=== PATIENT | male | born 1980 | race Caucasian/White ===

== ENCOUNTER 2016-12-09 07:15 | Emergency (ER) | payer BC ==
[2016-12-09] MEDS ORDERED: KETOROLAC TROMETHAMINE INJ/PF 30 MG/1 ML SDV IV ONE (08:06)
[2016-12-09] MEDS ORDERED: PROCHLORPERAZINE EDISYLATE INJ 10 MG/2 ML VIAL IV ONE (08:06)
[2016-12-09] MEDS ORDERED: DIPHENHYDRAMINE HCL 50 MG/ML VIAL IV ONE (08:06)
--- NOTE | 2016-12-09 08:40 | RADIOLOGY REPORT (SQ) ---
EXAM DESCRIPTION: CERV SP 4 OR 5 VIEWS COMPLETED DATE/TIME: 12/09/2016 8:29 am REASON FOR STUDY: neck pain, R>L COMPARISON: None. NUMBER OF VIEWS: Five views. TECHNIQUE: AP, lateral, obliques and odontoid radiographic images acquired of the cervical spine. N ondiagnostic swimmer's view LIMITATIONS: On the lateral view, the cervical spine is seen down to the mid C6 vertebral body. Swi mmer's view is nondiagnostic for C6, C7, and T1. However the AP and oblique views show normal alignm ent at these levels. FINDINGS: MINERALIZATION: Normal. ALIGNMENT: Anatomic. VERTEBRAE: Vertebral bodies of normal height. DISCS: No significant osteophytes or sclerosis. Disc height maintained. FORAMINA: No osteophytes or foraminal narrowing. LATERAL AND POSTERIOR ELEMENTS: Facets, lateral masses and spinous processes without significant find ings. HARDWARE: None in the spine. SOFT TISSUES: No masses or calcifications. Lung apices clear. OTHER: No other significant finding. IMPRESSION: Limited negative study. No acute findings. TECHNICAL DOCUMENTATION: JOB ID: [id number]- All Rights Reserved
--- NOTE | 2016-12-09 10:15 | ER Document Report ---
ED General - General Chief Complaint: Headache >24 hrs old Stated Complaint: HEAD AND NECK PAIN Time Seen by Provider: 12/09/16 07:54 TRAVEL OUTSIDE OF THE [place] IN LAST 30 DAYS: No - HPI Notes: Patient is a 35-year-old male with no significant past medical history who presents the ED complaining of neck pain and posterior headache 4 days. Patient states that the headache and the pain is intermittent and is relieved on occasion with ekzm-kjr-summeic medications. 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 Patient states that on occasion he will have some light sensitivity. He denies a migraine history. He is still eating and drinking without any difficulties. He denies any recent illness, surgeries, or injections into his neck or back. Patient denies any IV drug use. Denies any drug allergies. The pain does not radiate and is described as an ache. twisting motions of the head can increase his pain. Denies any fever, head injury, changes in behavior/vision/ speech/mentation/hearing, URI, sore throat, chest pain, palpitations, syncope, cough, shortness of breath, wheeze, dyspnea, abdominal pain, nausea/vomiting/ diarrhea, urinary retention, dysuria, hematuria, loss of control of bowel or bladder, numbness/tingling, saddle anesthesia, muscle paralysis/weakness, or rash. - Related Data Allergies/Adverse Reactions: No Known Allergies Allergy (Unverified 12/09/16 07:20) Past Medical History - Social History Smoking Status: Never Smoker Chew tobacco use (# tins/day): No Frequency of alcohol use: Occasional Drug Abuse: None Family History: Reviewed & Not Pertinent Patient has suicidal ideation: No - Past Medical History Cardiac Medical History: Denies: Hx Hypertension Pulmonary Medical History: Reports: Hx Asthma - as a child Endocrine Medical History: Reports: Hx Diabetes Mellitus Type 2 - "borderline" Renal/ Medical History: Denies: Hx Peritoneal Dialysis - Immunizations Hx Diphtheria, Pertussis, Tetanus Vaccination: Yes Review of Systems - Review of Systems Notes: REVIEW OF SYSTEMS: CONSTITUTIONAL : Denies fever, chills, or sweats. Denies recent illness. EENT: Denies eye, ear, throat, or mouth pain or symptoms. Denies nasal or sinus congestion or discharge. Denies throat, tongue, or mouth swelling or difficulty swallowing. CARDIOVASCULAR: Denies chest pain. Denies palpitations or racing or irregular heart beat. Denies ankle edema. RESPIRATORY: Denies cough, cold, or chest congestion. Denies shortness of breath, difficulty breathing, or wheezing. GASTROINTESTINAL: Denies abdominal pain or distention. Denies nausea, vomiting , or diarrhea. Denies blood in vomitus, stools, or per rectum. Denies black, tarry stools. Denies constipation. GENITOURINARY: Denies difficulty urinating, painful urination, burning, frequency, blood in urine, or discharge. MUSCULOSKELETAL: see hpi. SKIN: Denies rash, lesions or sores. NEUROLOGICAL: see hpi. Denies confusion or altered mental status. Denies passing out or loss of consciousness. Denies dizziness or lightheadedness. Denies weakness or paralysis or loss of use of either side. Denies problems with gait or speech. Denies sensory loss, numbness, or tingling. Denies seizures. PSYCHIATRIC: Denies anxiety or stress. Denies depression, suicidal ideation, or homicidal ideation. ALL OTHER SYSTEMS REVIEWED AND NEGATIVE. Dictation was performed using [employer] voice recognition software Physical Exam - Vital signs Vitals: Temp Pulse Resp BP Pulse Ox 98.4 F 79 18 157/102 H 96 12/09/16 07:21 12/09/16 07:21 12/09/16 07:21 12/09/16 07:21 12/09/16 07:21 Notes: PHYSICAL EXAMINATION: GENERAL: Well-appearing, well-nourished and in no acute distress. A&Ox4 HEAD: Atraumatic, normocephalic. Non-tender. No rasmussen sign EYES: Pupils equal round and reactive to light, extraocular movements intact, sclera anicteric, conjunctiva are normal. No obvious findings noted on funduscopic exam, limited exam w/o dilatation. No raccoon eyes/entrapment ENT: EAC clear b/l. TM's intact b/l without erythema, fluid, or perforation. Nares patent and without discharge. oropharynx clear without exudates. No tonsilar hypertrophy or erythema. Moist mucous membranes. No sinus tenderness. No hemotympanum/CSF discharge. NECK: Normal range of motion, supple without lymphadenopathy. No rigidity. No midline tenderness. Spurling negative. NEXUS negative. + tenderness to the rt C-paraspinal mm and near the occipital nerve bundle. (tenderness elicited is pain described). LUNGS: Breath sounds clear to auscultation bilaterally and equal. No wheezes rales or rhonchi. HEART: Regular rate and rhythm without murmurs, rubs, gallops. Musculoskeletal: Ext b/l: FROM to passive/active. Strength 5+/5. No deficits noted. No bony tenderness of extremities. No focal deficits Back: FROM to passive/active. Strength 5+/5. No vertebral point tenderness, stepoffs, or deformities. No other bony tenderness or ecchymosis. SLR negative b/l. Extremities: No cyanosis, clubbing, or edema b/l. Peripheral pulses 2+. Capillary refill less than 2 seconds. NEUROLOGICAL: MMSE intact. Cranial nerves grossly intact. Normal speech, normal gait. Normal sensory, motor exams. Reflexes 2+ b/l. MACK's negative. Pronator drift negative. Heel/calderon, finger/nose wnl. Walking on heels/toes and heel to toe wnl. PSYCH: Normal mood, normal affect. SKIN: Warm, Dry, normal turgor, no rashes or lesions noted. Course - Re-evaluation Re-evalutation: 12/09/16 10:18 Patient is an afebrile, well-hydrated, 35-year-old male who presents to the ED with a tension type headache. Vitals are stable. PE is otherwise unremarkable for any focal neurological deficits. Patient had tenderness to palpation in the area of his discomfort which was the pain that was described by the patient. X-ray of the C-spine was unremarkable for any acute pathology. Reviewed with Dr. Sykes, no CT warranted at this time. Toradol, Benadryl, and Compazine was given IV. Patient states that his headache has improved greatly and has almost completely resolved. Patient states that he is not drowsy at this time and is feeling well to go home. Driving precautions reviewed. Risks and benefits are understood. Recheck with PCM in 3-5 days. Return to the ED with any worsening/concerning symptoms otherwise as reviewed discharge. Conservative measures for symptoms otherwise. Patient is in agreement. - Vital Signs Vital signs: Temp Pulse Resp BP Pulse Ox 98.4 F 79 18 157/102 H 96 12/09/16 07:21 12/09/16 07:21 12/09/16 07:21 12/09/16 07:21 12/09/16 07:21 Discharge - Discharge Clinical Impression: Tension headache Condition: Stable Disposition: HOME, SELF-CARE Instructions: Headache ([facility]), Tension Headache ([facility]), Family Physicians / Practices Additional Instructions: Rest, Ice Tylenol/ibuprofen as needed Light stretches daily Strength exercises as able Moist heat and massage may help F/u with your PCP in 3-5 days for a recheck Consider consult(s) with Orthopedics/physical therapy for ongoing/worsening symptoms Return to the ED with any worsening symptoms and/or development of fever, headache, chest pain, palpitations, syncope, shortness of breath, trouble breathing, abdominal pain, n/v/d, blood in stool/urine, loss of control of bowel /bladder, urinary retention, muscle weakness/paralysis, saddle anesthesia, numbness/tingling, or other worsening symptoms that are concerning to you. Your blood pressure is high and should be evaluated with a primary provider for further eval and treatment. Forms: Elevated Blood Pressure, Return to Work Referrals: [facility] [Provider Group] - Follow up as needed [facility] [Provider Group] - Follow up as needed
[2016-12-09 10:40] VITALS: BP 150/98
== END 2016-12-09 10:37 | disposition home or self-care (01) ==
LOC: ER 07:15
DX: G44.209 Tension-type headache, unspecified, not intractable (principal); M54.2 Cervicalgia
CPT/HCPCS: 99284; 72050; J1200; J1885; J0780

== ENCOUNTER 2018-01-03 05:39 | Emergency (ER) | payer SELFPAY ==
--- NOTE | 2018-01-03 06:28 | ER Document Report ---
ED Neck/Back Problem - General Mode of Arrival: Ambulatory Information source: Patient TRAVEL OUTSIDE OF THE [place] IN LAST 30 DAYS: No <SONIA ALLEN - Last Filed: 01/03/18 06:36> <RAHEL ABURTO - Last Filed: 01/03/18 08:42> - General Chief Complaint: Back Pain Stated Complaint: BACK PAIN Time Seen by Provider: 01/03/18 06:24 Notes: 37-year-old male who presents to the emergency department today with complaints of lower back pain for x2.5 weeks. Patient states that initially it felt like there was "pinching in his left side" when his pain began. Patient states that it progressed to become a constant pulsating pain. Patient states when he lies down to sleep it is difficult to get out of that position due to pain. Patient states he works in a [employer], and they have been extremely busy recently and he is unsure if he "lifted a bundle of shingles wrong or something ". Patient denies any trauma to the area. Patient denies any incontinence or saddle anesthesia. Patient states he has not taken anything for his diabetes or hypertension in several months because "he got down to the levels they wanted him to be at". (SONIA ALLNE) - Related Data Allergies/Adverse Reactions: No Known Allergies Allergy (Unverified 12/09/16 07:20) Past Medical History - General Information source: Patient - Social History Smoking Status: Never Smoker Cigarette use (# per day): No Frequency of alcohol use: None Drug Abuse: None Lives with: Family Family History: Reviewed & Not Pertinent Patient has suicidal ideation: No Patient has homicidal ideation: No - Past Medical History Cardiac Medical History: Reports: Hx Hypertension Pulmonary Medical History: Reports: Hx Asthma - as a child Endocrine Medical History: Reports: Hx Diabetes Mellitus Type 2 - Immunizations Hx Diphtheria, Pertussis, Tetanus Vaccination: Yes <SONIA ALLEN - Last Filed: 01/03/18 06:36> Review of Systems - Review of Systems Constitutional: No symptoms reported EENT: No symptoms reported Cardiovascular: No symptoms reported Respiratory: No symptoms reported Gastrointestinal: No symptoms reported Genitourinary: No symptoms reported Male Genitourinary: No symptoms reported Musculoskeletal: See HPI, Back pain Skin: No symptoms reported Hematologic/Lymphatic: No symptoms reported Neurological/Psychological: No symptoms reported -: Yes All other systems reviewed and negative <SONIA ALLEN - Last Filed: 01/03/18 06:36> Physical Exam <SONIA ALLEN - Last Filed: 01/03/18 06:36> <RAHEL ABURTO - Last Filed: 01/03/18 08:42> - Vital signs Vitals: Temp Pulse Resp BP Pulse Ox 98.3 F 102 H 20 192/115 H 97 01/03/18 05:40 01/03/18 05:40 01/03/18 05:40 01/03/18 05:40 01/03/18 05:40 - Notes Notes: Physical Exam: General: Alert, appears well. HEENT: Normocephalic. Atraumatic. PERRL. Extraocular movements intact. Oropharynx clear. Neck: Supple. Non-tender. Respiratory: No respiratory distress. Clear and equal breath sounds bilaterally. Cardiovascular: Regular rate and rhythm. Abdominal: Obese. Non-tender. No distension. Normal Bowel Sounds. Back: Left SI joint tenderness with palpation, tender over the lower lumbar processes. No right sided tenderness with palpation. Patient indicates maximum pain over the left sacral area which is also where maximum area of tenderness with palpation is. No deformity or step off. Extremities: Moves all four extremities. Upper extremities: Normal inspection. Normal ROM. Lower extremities: Normal inspection. No edema. Normal ROM. Neurological: Normal cognition. AAOx4. Normal speech. Psychological: Normal affect. Normal Mood. Skin: Warm. Dry. Normal color. (SONIA ALLEN) Course <SONIA ALLEN - Last Filed: 01/03/18 06:36> - Laboratory Result Diagrams: 01/03/18 06:51 01/03/18 07:59 - Diagnostic Test Radiology reviewed: Image reviewed, Reports reviewed - Lumbar spine films are unremarkable. <RAHEL ABURTO - Last Filed: 01/03/18 08:42> - Re-evaluation Re-evalutation: 01/03/18 08:31 Lumbar back x-rays were unremarkable. Hemoglobin A1c was 8.1, there was proteinuria. Patient will be given prescriptions for metformin, lisinopril, copies of his lab work and encouraged to follow-up with his primary care. (RAHEL ABURTO) - Vital Signs Vital signs: Temp Pulse Resp BP Pulse Ox 98.3 F 102 H 20 192/115 H 97 01/03/18 05:40 01/03/18 05:40 01/03/18 05:40 01/03/18 05:40 01/03/18 05:40 - Laboratory Laboratory results interpreted by me: 01/03/18 01/03/18 01/03/18 06:51 07:10 07:59 Glucose 219 H Hemoglobin A1c % 8.1 H Urine Protein 100 H Urine Glucose (UA) >=500 H Urine Ketones TRACE H Urine Blood SMALL H Discharge <SONIA ALLEN - Last Filed: 01/03/18 06:36> <RAHEL ABURTO - Last Filed: 01/03/18 08:42> - Discharge Clinical Impression: High blood pressure associated with diabetes Low back pain Qualifiers: Chronicity: acute Back pain laterality: left Sciatica presence: without sciatica Qualified Code(s): M54.5 - Low back pain Diabetes Qualifiers: Diabetes mellitus type: type 2 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 Most commonly the pain is due to straining of the muscles and ligaments in the low back. Usual treatment includes: (1) Rest on a firm surface. Avoid lying on your stomach. (2) Ice pack the painful area. After a few days, gentle heat may be used intermittently to relax the area, or ice packs can be continued. (3) Medication may be needed -- muscle relaxers and antiinflammatory medicines are commonly used. (4) As the back improves, exercises are prescribed to strengthen the back and abdominal muscles. Your doctor will advise you on the proper care for your back at each stage in your recovery. You may be better in a few days -- or healing may take several weeks. If new symptoms of a "herniated disc" (radiation of pain, numbness, or tingling down the back of the leg or weakness in the leg) occur, you should be re-examined. Further testing may be necessary. Diabetes: You have an abnormally high blood sugar caused by diabetes. Uncontrolled high blood sugar leads to early heart disease, strokes, nerve damage, eye damage, and kidney damage. All diabetics should follow a diet designed to control the blood sugar. Overweight diabetics should exercise regularly and lose weight. If this is not sufficient to control the blood sugar, pills or insulin shots are necessary. Younger people who develop diabetes almost always require insulin daily. Home testing of blood sugars or urine sugar is required. Diabetic teaching is available to help you figure insulin doses and monitor the blood sugar. Call the physician if there is faintness, excess sleepiness, or very rapid breathing. If hypoglycemia (LOW blood sugar) develops, symptoms are shakiness, weakness, sweating, and confusion. In this case, you should eat or drink something with sugar at once. High Blood Pressure: When your blood pressure was taken today it was elevated. Some simple things you can do to help are: If you have blood pressure medicine but aren't using it regularly, start taking it again. Get some aerobic exercise for at least 20 minutes on a daily basis. (See your doctor before beginning a new exercise program.) Eat a low-fat diet. Lose excess weight. Avoid salty foods and avoid adding salt to any of the foods you eat. Avoid diet pills, decongestants, "energizing" herbs, and other medicines that elevate blood pressure. If left untreated, hypertension greatly enhances your risk for developing heart disease and strokes. Please don't ignore this problem. Take the metformin and lisinopril for your diabetes and blood pressure as prescribed. Take the Flexeril for muscle spasm in your low back, and the Percocet for pain as needed. Take ibuprofen 800 mg every 8 hours for your low back pain and inflammation. Drink plenty of fluids. Rest for the next 2-3 days. Follow-up with your primary care provider in the next week for recheck of your back pain, blood pressure, and blood sugars. RETURN TO THE EMERGENCY ROOM IF ANY NEW OR WORSENING SYMPTOMS. Prescriptions: Cyclobenzaprine HCl [Flexeril 5 mg Tablet] 5 mg PO TID PRN #15 tablet PRN Reason: Lisinopril 20 mg PO DAILY #30 tablet Metformin HCl 500 mg PO BID #60 tablet Oxycodone HCl/Acetaminophen [Percocet 5-325 mg Tablet] 1 - 2 tab PO ASDIR PRN # 15 tablet PRN Reason: Forms: Return to Work Scribe Attestation: 01/03/18 07:58 I personally performed the services described in the documentation, reviewed and edited the documentation which was dictated to the scribe in my presence, and it accurately records my words and actions. (RAHEL ABURTO) Scribe Documentation - Scribe Written by Calliee:: Doron Fine, 01/03/2018 0650 acting as scribe for :: Mony <SONIA ALLEN - Last Filed: 01/03/18 06:36>
[2018-01-03 06:58] LABS: ABSOLUTE BASOPHILS # (AUTO) 0.1 10^3/uL (0.0-0.2); ABSOLUTE EOSINOPHILS # (AUTO) 0.2 10^3/uL (0.0-0.6); ABSOLUTE MONOCYTES (AUTO) 0.5 10^3/uL (0.1-1.4); EOSINOPHILS % (AUTO) 2.4 % (0-6); HEMATOCRIT 43.1 % (37.9-51.0); HEMOGLOBIN 14.8 g/dL (13.5-17.0); LYMPHOCYTES % (AUTO) 25.8 % (13-45); MEAN CORPUSCULAR HEMOGLOBIN 27.9 pg (27.0-33.4); MEAN CORPUSCULAR HGB CONC 34.4 g/dL (32.0-36.0); MEAN CORPUSCULAR VOLUME 81 fl (80-97); MONOCYTES % (AUTO) 6.2 % (3-13); PLATELET COUNT 210 10^3/uL (150-450); RED CELL DISTRIBUTION WIDTH 13.4 % (11.5-14.0); SEGMENTED NEUTROPHILS % (AUTO) 64.6 % (42-78); TOTAL CELLS COUNTED % (AUTO) 100 %; WHITE BLOOD COUNT 7.7 10^3/uL (4.0-10.5)
--- NOTE | 2018-01-03 07:22 | RADIOLOGY REPORT (SQ) ---
EXAM DESCRIPTION: XR LUMBAR SPINE ANTEROPOSTERIOR, LATERAL, AND OBLIQUES COMPLETED DATE/TME: 01/03/2018 06:36 CLINICAL HISTORY: 37 years Male, Low back pain COMPARISON: None. Findings: Normal alignment and curvature. Vertebral and intervertebral heights are maintained. Mild disc desiccation at the thoracolumbar junction. Mild osteoarthritis of the hips. Extraspinal structures are grossly intact. IMPRESSION: No acute findings of XR LUMBAR SPINE ANTEROPOSTERIOR, LATERAL, AND OBLIQUES. .
[2018-01-03 07:46] LABS: APPEARANCE,URINE CLEAR; BILIRUBIN,URINE NEGATIVE (NEGATIVE); COLOR,URINE YELLOW; GLUCOSE, URINE >=500 mg/dL (NEGATIVE); KETONES,URINE TRACE mg/dL (NEGATIVE); LEUKOCYTE ESTERASE,URINE NEGATIVE (NEGATIVE); NITRITE,URINE NEGATIVE (NEGATIVE); PROTEIN,URINE 100 mg/dL (NEGATIVE); URINE SPECIFIC GRAVITY 1.027; UROBILINOGEN,URINE NEGATIVE mg/dL (<2.0)
[2018-01-03 08:21] LABS: ALANINE AMINOTRANSFERASE 37 U/L (21-72); ALBUMIN 4.3 g/dL (3.5-5.0); ALKALINE PHOSPHATASE 84 U/L (38-126); ANION GAP 16 (5-19); ASPARTATE AMINO TRANSFERASE 26 U/L (17-59); BILIRUBIN,DIRECT 0.1 mg/dL (0.0-0.4); BILIRUBIN,TOTAL 0.5 mg/dL (0.2-1.3); BLOOD UREA NITROGEN 11 mg/dL (7-20); CALCIUM 9.5 mg/dL (8.4-10.2); CARBON DIOXIDE 23 mmol/L (22-30); CHLORIDE 101 mmol/L (98-107); GLUCOSE 219 mg/dL (75-110); POTASSIUM 4.2 mmol/L (3.6-5.0); SODIUM 140.4 mmol/L (137-145); TOTAL PROTEIN 7.4 g/dL (6.3-8.2)
[2018-01-03 08:56] VITALS: BP 159/102
== END 2018-01-03 08:54 | disposition home or self-care (01) ==
LOC: ER 05:39
DX: M54.5 Low back pain (principal); I10 Essential (primary) hypertension; E11.9 Type 2 diabetes mellitus without complications
CPT/HCPCS: 36415; 72110; 80053; 81001; 83036; 85025; 99283

== ENCOUNTER 2018-04-03 10:03 | Emergency (ER) | payer SELFPAY ==
--- NOTE | 2018-04-03 10:53 | ER Document Report ---
ED Medical Screen (RME) - General Chief Complaint: Chest Pain Stated Complaint: CHEST PAIN, SOB Time Seen by Provider: 04/03/18 10:53 Notes: 37-year-old morbid obese, hypertensive, nontreated diabetic with family history of heart disease to the emergency department for chest pain for several days. Hurts with exertion and has dyspnea on exertion. I have greeted and performed a rapid initial assessment of this patient. A comprehensive ED assessment and evaluation of the patient, analysis of test results and completion of the medical decision making process will be conducted by additional ED providers. TRAVEL OUTSIDE OF THE [place] IN LAST 30 DAYS: No - Related Data Allergies/Adverse Reactions: No Known Allergies Allergy (Verified 04/03/18 10:04) Past Medical History - Past Medical History Cardiac Medical History: Reports: Hx Hypertension Pulmonary Medical History: Reports: Hx Asthma - as a child Endocrine Medical History: Reports: Hx Diabetes Mellitus Type 2 Renal/ Medical History: Denies: Hx Peritoneal Dialysis - Immunizations Hx Diphtheria, Pertussis, Tetanus Vaccination: Yes Review of Systems - Review of Systems Notes: Review of systems positive for the following: Chest pain, shortness of breath with exertion Physical Exam - Vital signs Vitals: Temp Pulse Resp BP Pulse Ox 98.7 F 87 20 185/86 H 96 04/03/18 10:46 04/03/18 10:46 04/03/18 10:46 04/03/18 10:46 04/03/18 10:46 Course - Vital Signs Vital signs: Temp Pulse Resp BP Pulse Ox 98.7 F 87 20 185/86 H 96 04/03/18 10:46 04/03/18 10:46 04/03/18 10:46 04/03/18 10:46 04/03/18 10:46
[2018-04-03 11:40] LABS: ABSOLUTE EOSINOPHILS # (AUTO) 0.2 10^3/uL (0.0-0.6); ABSOLUTE LYMPHOCYTES (AUTO) 1.9 10^3/uL (0.5-4.7); ABSOLUTE MONOCYTES (AUTO) 0.4 10^3/uL (0.1-1.4); ABSOLUTE NEUT (AUTO) 3.7 10^3/uL (1.7-8.2); BASOPHILS % (AUTO) 0.7 % (0-2); EOSINOPHILS % (AUTO) 2.6 % (0-6); HEMOGLOBIN 14.8 g/dL (13.5-17.0); LYMPHOCYTES % (AUTO) 30.8 % (13-45); MEAN CORPUSCULAR HEMOGLOBIN 27.6 pg (27.0-33.4); MEAN CORPUSCULAR HGB CONC 34.4 g/dL (32.0-36.0); MEAN CORPUSCULAR VOLUME 80 fl (80-97); PLATELET COUNT 185 10^3/uL (150-450); RED BLOOD COUNT 5.35 10^6/uL (4.35-5.55); SEGMENTED NEUTROPHILS % (AUTO) 59.9 % (42-78); TOTAL CELLS COUNTED % (AUTO) 100 %; WHITE BLOOD COUNT 6.1 10^3/uL (4.0-10.5)
--- NOTE | 2018-04-03 11:45 | RADIOLOGY REPORT (SQ) ---
EXAM DESCRIPTION: CHEST 2 VIEWS COMPLETED DATE/TIME: 04/03/2018 11:34 am REASON FOR STUDY: cp COMPARISON: Two-view chest 02/25/2012 EXAM PARAMETERS: NUMBER OF VIEWS: two views TECHNIQUE: Digital Frontal and Lateral radiographic views of the chest acquired. RADIATION DOSE: NA LIMITATIONS: none FINDINGS: LUNGS AND PLEURA: No opacities, masses or pneumothorax. No pleural effusion. MEDIASTINUM AND HILAR STRUCTURES: No masses or contour abnormalities. HEART AND VASCULAR STRUCTURES: Heart normal size. No evidence for failure. BONES: No acute findings. HARDWARE: None in the chest. OTHER: No other significant finding. IMPRESSION: NO ACUTE RADIOGRAPHIC FINDING IN THE CHEST. TECHNICAL DOCUMENTATION: JOB ID: [id number] [employer]- All Rights Reserved Reading location - IP/workstation name: [email or web address]
[2018-04-03 11:58] LABS: ALANINE AMINOTRANSFERASE 41 U/L (21-72); ALBUMIN 4.6 g/dL (3.5-5.0); ALKALINE PHOSPHATASE 95 U/L (38-126); ANION GAP 11 (5-19); ASPARTATE AMINO TRANSFERASE 31 U/L (17-59); BILIRUBIN,DIRECT 0.2 mg/dL (0.0-0.4); BILIRUBIN,TOTAL 0.4 mg/dL (0.2-1.3); BLOOD UREA NITROGEN 11 mg/dL (7-20); CALCIUM 9.5 mg/dL (8.4-10.2); CARBON DIOXIDE 25 mmol/L (22-30); CHLORIDE 103 mmol/L (98-107); CHOLESTEROL 179.95 mg/dL (0-200); CREATINE KINASE 163 U/L (55-170); GLUCOSE 223 mg/dL (75-110); LIPASE 178.7 U/L (23-300); POTASSIUM 4.4 mmol/L (3.6-5.0); SODIUM 139.1 mmol/L (137-145); TOTAL PROTEIN 7.4 g/dL (6.3-8.2); TRIGLYCERIDES 163 mg/dL (<150)
[2018-04-03 12:09] LABS: CREATINE KINASE MB 1.87 ng/mL (<4.55); NT PRO BNP 120 pg/mL (<125)
[2018-04-03 12:11] LABS: DIRECT LDL 129 mg/dL (<100)
[2018-04-03 12:12] LABS: TROPONIN I < 0.012 ng/mL
[2018-04-03 12:13] LABS: VLDL CHOLESTEROL 32.6 mg/dL (10-31)
[2018-04-03] MEDS ORDERED: AMLODIPINE BESYLATE 5 MG TABLET PO ONE (14:49)
[2018-04-03] MEDS ORDERED: METFORMIN HCL 500 MG TABLET PO ONE (14:49)
--- NOTE | 2018-04-03 14:53 | ER Document Report ---
ED General - General Chief Complaint: Chest Pain Stated Complaint: CHEST PAIN, SOB Time Seen by Provider: 04/03/18 10:53 TRAVEL OUTSIDE OF THE [place] IN LAST 30 DAYS: No - HPI Patient complains to provider of: Chest pain Notes: Patient coming in for evaluation of chest pain. Patient's was evaluated by triage provider notes provided below 37-year-old morbid obese, hypertensive, nontreated diabetic with family history of heart disease to the emergency department for chest pain for several days. Hurts with exertion and has dyspnea on exertion. Patient states not had any medication and quite some time patient has he lost his insurance is waiting to get his insurance started his new job which will be in a few months. Patient denies any new trauma denies any recent travel out of state or out of the country. Patient otherwise resting comfortably upon my evaluation. Patient states he thinks he used to be on lisinopril and metformin. Patient denies fevers chills nausea vomiting diarrhea A brief review of the patient's past medical records available in [facility] was performed - Related Data Allergies/Adverse Reactions: No Known Allergies Allergy (Verified 04/03/18 10:04) Past Medical History - Social History Smoking Status: Never Smoker Frequency of alcohol use: Occasional Family History: Reviewed & Not Pertinent Patient has suicidal ideation: No Patient has homicidal ideation: No - Past Medical History Cardiac Medical History: Reports: Hx Hypertension Pulmonary Medical History: Reports: Hx Asthma - as a child Endocrine Medical History: Reports: Hx Diabetes Mellitus Type 2 Renal/ Medical History: Denies: Hx Peritoneal Dialysis - Immunizations Hx Diphtheria, Pertussis, Tetanus Vaccination: Yes Review of Systems - Review of Systems Constitutional: No symptoms reported EENT: No symptoms reported Cardiovascular: Chest pain Respiratory: No symptoms reported Gastrointestinal: No symptoms reported Genitourinary: No symptoms reported Male Genitourinary: No symptoms reported Musculoskeletal: No symptoms reported Skin: No symptoms reported Hematologic/Lymphatic: No symptoms reported Neurological/Psychological: No symptoms reported -: Yes All other systems reviewed and negative Physical Exam - Vital signs Vitals: Temp Pulse Resp BP Pulse Ox 98.7 F 87 20 185/86 H 96 04/03/18 10:46 04/03/18 10:46 04/03/18 10:46 04/03/18 10:46 04/03/18 10:46 Interpretation: Normal - General General appearance: Appears well, Alert - HEENT Head: Normocephalic, Atraumatic Eyes: Normal Pupils: PERRL - Respiratory Respiratory status: No respiratory distress Chest status: Nontender Breath sounds: Normal Chest palpation: Normal - Cardiovascular Rhythm: Regular Heart sounds: Normal auscultation Murmur: No - Abdominal Inspection: Normal Distension: No distension Bowel sounds: Normal Tenderness: Nontender Organomegaly: No organomegaly - Back Back: Normal, Nontender - Extremities General upper extremity: Normal inspection, Nontender, Normal color, Normal ROM, Normal temperature General lower extremity: Normal inspection, Nontender, Normal color, Normal ROM, Normal temperature, Normal weight bearing. No: Marion's sign - Neurological Neuro grossly intact: Yes Cognition: Normal Orientation: AAOx4 [place] Coma Scale Eye Opening: Spontaneous Coretta Coma Scale Verbal: Oriented Coretta Coma Scale Motor: Obeys Commands Coretta Coma Scale Total: 15 Speech: Normal Motor strength normal: LUE, RUE, LLE, RLE Sensory: Normal - Psychological Associated symptoms: Normal affect, Normal mood - Skin Skin Temperature: Warm Skin Moisture: Dry Skin Color: Normal Course - Re-evaluation Re-evalutation: 04/03/18 18:18 The patient has atypical chest pain as the patient's chest pain is not suggestive of pulmonary embolus, cardiac ischemia, aortic dissection, or other serious etiology. Given the extremely low risk of these diagnoses further testing and evaluation for these possibilities does not appear to be indicated at this time. The patient has been instructed to return if the symptoms worsen or change in any way. We will start the patient back on his metformin and also start the patient on amlodipine. We will give the patient's information to our social security benefits interviewer to establish follow-up at this time laboratory studies not show any critical pathology lipids panel was performed by provider in triage - Vital Signs Vital signs: Temp Pulse Resp BP Pulse Ox 97.8 F 87 17 151/70 H 98 04/03/18 15:34 04/03/18 10:46 04/03/18 15:33 04/03/18 15:34 04/03/18 15:34 - Laboratory Result Diagrams: 04/03/18 11:12 04/03/18 11:12 Laboratory results interpreted by me: 04/03/18 04/03/18 11:12 11:12 Glucose 223 H Hemoglobin A1c % 8.4 H Triglycerides 163 H LDL Cholesterol Direct 129 H VLDL Cholesterol 32.6 H HDL Cholesterol 38 L Discharge - Discharge Clinical Impression: Chest pain of uncertain etiology Hypertension Qualifiers: Hypertension type: unspecified Qualified Code(s): I10 - Essential (primary) hyp ertension Diabetes Qualifiers: Diabetes mellitus type: type 2 Diabetes mellitus complication status: without complication Condition: Good Disposition: HOME, SELF-CARE Instructions: Calcium Channel Blockers ([facility]), Chest Wall Pain ([facility]), Chest Pain of Unclear Cause ([facility]), Diabetes ([facility]), Glucophage ([facility]) Additional Instructions: At this time your chest x-ray laboratory studies not show any critical pathology and I recommend following up with your primary care physician please take medications as prescribed metformin and amlodipine. Return to ER symptoms worsen. Prescriptions: Amlodipine Besylate [Norvasc 5 mg Tablet] 5 mg PO DAILY #30 tablet Metformin HCl [Glucophage 500 mg Tablet] 500 mg PO BID #60 tablet Forms: Return to Work
[2018-04-03 16:50] VITALS: BP 151/70
--- NOTE | 2018-04-03 16:56 | EKG REPORT ---
SEVERITY:- ABNORMAL ECG - SINUS RHYTHM PROBABLE LEFT VENTRICULAR HYPERTROPHY : Confirmed by: Kaylee Maddox 03-Apr-2018 16:56:01
== END 2018-04-03 15:34 | disposition home or self-care (01) ==
LOC: ER 10:03
DX: R07.9 Chest pain, unspecified (principal); I10 Essential (primary) hypertension; E11.9 Type 2 diabetes mellitus without complications; E66.01 Morbid (severe) obesity due to excess calories; R06.00 Dyspnea, unspecified; J45.909 Unspecified asthma, uncomplicated
CPT/HCPCS: 36415; 71046; 80053; 80061; 82550; 82553; 83036; 83690; 83880; 84484; 85025; 93005; 93010; 99284

== ENCOUNTER 2019-06-25 11:44 | Emergency (ER) | payer BC ==
[2019-06-25 12:27] LABS: ABSOLUTE EOSINOPHILS # (AUTO) 0.1 10^3/uL (0.0-0.6); ABSOLUTE LYMPHOCYTES (AUTO) 0.9 10^3/uL (0.5-4.7); ABSOLUTE MONOCYTES (AUTO) 0.4 10^3/uL (0.1-1.4); ABSOLUTE NEUT (AUTO) 4.9 10^3/uL (1.7-8.2); BASOPHILS % (AUTO) 0.3 % (0-2); HEMATOCRIT 38.8 % (37.9-51.0); HEMOGLOBIN 13.4 g/dL (13.5-17.0); LYMPHOCYTES % (AUTO) 14.1 % (13-45); MEAN CORPUSCULAR HEMOGLOBIN 28.8 pg (27.0-33.4); MEAN CORPUSCULAR HGB CONC 34.5 g/dL (32.0-36.0); MEAN CORPUSCULAR VOLUME 83 fl (80-97); MONOCYTES % (AUTO) 5.9 % (3-13); PLATELET COUNT 198 10^3/uL (150-450); RED BLOOD COUNT 4.65 10^6/uL (4.35-5.55); RED CELL DISTRIBUTION WIDTH 13.8 % (11.5-14.0); SEGMENTED NEUTROPHILS % (AUTO) 78.7 % (42-78); TOTAL CELLS COUNTED % (AUTO) 100 %; WHITE BLOOD COUNT 6.2 10^3/uL (4.0-10.5)
[2019-06-25 12:37] LABS: ALKALINE PHOSPHATASE 56 U/L (38-126); ANION GAP 10 (5-19); ASPARTATE AMINO TRANSFERASE 27 U/L (17-59); BILIRUBIN,TOTAL 0.5 mg/dL (0.2-1.3); BLOOD UREA NITROGEN 14 mg/dL (7-20); CALCIUM 9.2 mg/dL (8.4-10.2); CARBON DIOXIDE 22 mmol/L (22-30); CHLORIDE 105 mmol/L (98-107); GLUCOSE 250 mg/dL (75-110); POTASSIUM 4.1 mmol/L (3.6-5.0); TOTAL PROTEIN 6.7 g/dL (6.3-8.2)
--- NOTE | 2019-06-25 12:37 | ER Document Report ---
ED Neck/Back Problem - General Chief Complaint: Back Pain Stated Complaint: BACK PAIN/FLANK PAIN Time Seen by Provider: 06/25/19 12:19 Primary Care Provider: DANIEL BUTTERFIELD MD [ACTIVE STAFF] - Follow up as needed RICKEY RIVERO PA-C [Primary Care Provider] - Follow up as needed Mode of Arrival: Medic Information source: Patient Notes: 38-year-old male presented to ED for complaint right lower back pain. He states that he has a history of sciatica pain for about the last 10 years and is always on the right side. He states he has flareups that time and he takes Tylenol and it goes away. He states he has been on Pulmicort at this morning when he had a flareup in his right buttocks down his right leg. He came in by EMS that they gave him a liter normal saline and 30 mg of Toradol. He is alert oriented respirations are nonlabored speaking in full sentences. He states he does not have any loss of control of bowel bladder, no saddle anesthesia, no loss of co ntrol or sensation to the lower extremities. He does have some pain. He states he was told by EMS he had an irregular heartbeat on his ride to the hospital. TRAVEL OUTSIDE OF THE [place] IN LAST 30 DAYS: No - HPI Patient complains to provider of: Lower back Onset: This morning Onset: Chronic Timing: Waxing and waning, Still present Quality of pain: Sharp Severity: Moderate Pain Level: 3 Recent injury: No Associated symptoms: Like prior neck/back pain, Radiation to leg, Lower back pain. denies: Constipation, Incontinence Exacerbated by: Movement of trunk, Sitting position Relieved by: Nothing Similar symptoms previously: Yes Recently seen / treated by doctor: No - Related Data Allergies/Adverse Reactions: No Known Allergies Allergy (Verified 06/25/19 11:56) Home Medications: lisinopril, metformin Past Medical History - General Information source: Patient - Social History Smoking Status: Never Smoker Chew tobacco use (# tins/day): No Frequency of alcohol use: Occasional Drug Abuse: None Family History: Reviewed & Not Pertinent Patient has suicidal ideation: No Patient has homicidal ideation: No - Past Medical History Cardiac Medical History: Reports: Hx Hypertension Pulmonary Medical History: Reports: Hx Asthma - as a child EENT Medical History: Reports: None Neurological Medical History: Reports: None Endocrine Medical History: Reports: Hx Diabetes Mellitus Type 2 Renal/ Medical History: Reports: None Malignancy Medical History: Reports None GI Medical History: Reports: None Musculoskeletal Medical History: Reports None Skin Medical History: Reports None Psychiatric Medical History: Reports: None Traumatic Medical History: Reports: None Infectious Medical History: Reports: None Surgical Hx: Negative Past Surgical History: Reports: None - Immunizations Hx Diphtheria, Pertussis, Tetanus Vaccination: Yes Review of Systems - Review of Systems Constitutional: No symptoms reported EENT: No symptoms reported Cardiovascular: No symptoms reported Respiratory: No symptoms reported Gastrointestinal: No symptoms reported Genitourinary: No symptoms reported Male Genitourinary: No symptoms reported Musculoskeletal: Back pain, Muscle pain, Muscle stiffness Skin: No symptoms reported Hematologic/Lymphatic: No symptoms reported Neurological/Psychological: No symptoms reported -: Yes All other systems reviewed and negative Physical Exam - Vital signs Vitals: Temp Pulse Resp BP Pulse Ox 98.0 F 98 18 138/76 H 98 06/25/19 11:56 06/25/19 11:56 06/25/19 11:56 06/25/19 11:56 06/25/19 11:56 Interpretation: Normal - General General appearance: Appears well, Alert - HEENT Head: Normocephalic, Atraumatic Eyes: Normal Pupils: PERRL - Respiratory Respiratory status: No respiratory distress Chest status: Nontender Breath sounds: Normal Chest palpation: Normal - Cardiovascular Rhythm: Regular Heart sounds: Normal auscultation Murmur: No - Abdominal Inspection: Normal Distension: No distension Bowel sounds: Normal Tenderness: Nontender Organomegaly: No organomegaly - Back Back: Normal, Tender - Right buttocks going down right leg. No: Deformity/step- off, CVA tenderness, Vertebra tenderness, Scars, Scoliosis, Wounds - Extremities General upper extremity: Normal inspection, Nontender, Normal color, Normal ROM, Normal temperature General lower extremity: Normal inspection, Nontender, Normal color, Normal ROM, Normal temperature, Normal weight bearing. No: Marion's sign - Neurological Neuro grossly intact: Yes Cognition: Normal Orientation: AAOx4 Coretta Coma Scale Eye Opening: Spontaneous Coretta Coma Scale Verbal: Oriented [place] Coma Scale Motor: Obeys Commands Coretta Coma Scale Total: 15 Speech: Normal Motor strength normal: LUE, RUE, LLE, RLE Sensory: Normal - Psychological Associated symptoms: Normal affect, Normal mood - Skin Skin Temperature: Warm Skin Moisture: Dry Skin Color: Normal Course - Re-evaluation Re-evalutation: 06/25/19 21:34 Discussed labs EKG and chest x-ray with due to the patient being in bigeminy. He stated that I should call Dr. Butterfield and see if he would follow him up and see if that he would like the patient started on a beta-bronwyn. I did speak with Dr. Butterfield. Dr. Butterfield suggested please start him on Toprol-XL 25 mg and he will follow him that he will need to do a Holter monitor for this patient. I did speak with the patient make sure that the phone number was proper gave this to Dr. Butterfield and Dr. Butterfield will call the patient and set up a follow-up appointment. I did give the patient the phone number for Dr. Butterfield in case he does not hear from him within the next couple days. I did start the patient on Toprol-XL 25 mg and gave him a prescription for 1 every afternoon for the next 30 days. Patient was discharged home after he verbalized understanding and agreement treatment plan. - Vital Signs Vital signs: Temp Pulse Resp BP Pulse Ox 98.2 F 98 21 H 159/112 H 97 06/25/19 17:01 06/25/19 11:56 06/25/19 17:01 06/25/19 17:01 06/25/19 17:01 - Laboratory Result Diagrams: 06/25/19 11:50 06/25/19 11:50 Laboratory results interpreted by me: 06/25/19 06/25/19 06/25/19 11:50 11:50 12:43 Hgb 13.4 L Seg Neutrophils % 78.7 H Sodium 136.8 L Glucose 250 H Urine Protein 100 H Urine Glucose (UA) >=500 H - Diagnostic Test Radiology reviewed: Image reviewed, Reports reviewed Discharge - Discharge Clinical Impression: Bigeminal rhythm Low back pain Qualifiers: Chronicity: chronic Back pain laterality: right Sciatica presence: with sciatica Sciatica laterality: sciatica of right side Qualified Code(s): M54.41 - Lumbago with sciatica, right side Condition: Stable Disposition: HOME, SELF-CARE Additional Instructions: While being seen please get the blood for your back pain today in the emergency room your heart rate was in bigeminy/trigeminy. Which means you are throwing PV Cs every second or third beat. I have spoken with a american history professor who is stated that you should be started on Toprol-XL 25 mg every evening and he will contact you to schedule a appointment for you to come in and follow-up and get put on a Holter monitor. You have denied any pain in the chest or shortness of breath while I have seen you. He stated he would call you and schedule up appointment promptly., All thus far Chronic Back Pain Chronic back pain (pain persisting longer than three months) is a common problem. A medical evaluation can look for herniated disc, arthritis, osteoporo sis, tumors, and infections. But at least half the time, there's no obvious treatable cause. Anxiety and depression tend to worsen back pain. Ibuprofen or other anti-inflammatory medicine can help. A heating pad, used for 15-20 minutes at a time, can ease pain. For this type of back pain, narcotic medicines should be avoided. Muscle relaxers are rarely helpful unless you're having spasms. Activity is important. Find an aerobic exercise program that your back can tolerate. Too much rest makes back pain worse. Specific back exercises are usually prescribed to strengthen the back and abdominal muscles. Often, a physical therapist can help. Avoid heavy lifting, working while bent over, or standing with both knees straight. Most back pain patients do better with a firm mattress. If new symptoms of a "herniated disc" (radiation of pain, numbness, or tingling down the back of the leg or weakness in the leg) occur, you should be re-examined. ICE PACKS: Apply ice packs frequently against the painful area. Many different schedules are recommended, such as "20 minutes on, 20 minutes off" or "one hour ice, two hours rest." If you need to work, you may need to go longer between ice treatments. You should plan to have the area ice packed AT LEAST one fourth of the time. The ice should be applied over the wrap, tape, or splint, or over a layer of cloth -- not directly against the skin. Some ice bags have a built-in cloth and can be put directly on the skin. WARM PACKS: After approximately two days, apply gentle heat (such as a heating pad or hot water bottle) for about 20 to 30 minutes about every two hours -- at least four times daily. Warmth and elevation will help you make a more rapid recovery, and will ease the pain considerably. Do not use HOT heat, and never apply heat for longer than 30 minutes. The continuous heat can invisibly damage skin and muscles -- even when no burn is seen on the surface. Damaged muscles can make you MORE sore. Toradol Injection You have been given an injection of ketorolac tromethamine (Toradol). This is an excellent, safe drug for pain control. It also has potent antiinflammatory action. You should have significant pain relief within about one hour. Toradol is not addicting and is non-sedating. It does not interfere with driving or work. Call or return if you develop itching, hives, shortness of breath, or rash. FOLLOW-UP CARE: If you have been referred to a physician for follow-up care, call the physicians office for an appointment as you were instructed or within the next two days. If you experience worsening or a significant change in your symptoms, notify the physician immediately or return to the Emergency Department at any time for re-evaluation. Prescriptions: Metoprolol Succinate [Toprol Xl 25 mg Tab.sr] 25 mg PO QPM #30 tab.sr.24h Forms: Elevated Blood Pressure, Return to Work Referrals: RICKEY RIVERO PA-C [Primary Care Provider] - Follow up as needed DANIEL BUTTERFIELD MD [ACTIVE STAFF] - Follow up as needed
[2019-06-25 13:01] LABS: APPEARANCE,URINE SLIGHTLY-CLOUDY; BILIRUBIN,URINE NEGATIVE (NEGATIVE); COLOR,URINE YELLOW; GLUCOSE, URINE >=500 mg/dL (NEGATIVE); KETONES,URINE NEGATIVE (NEGATIVE); LEUKOCYTE ESTERASE,URINE NEGATIVE (NEGATIVE); NITRITE,URINE NEGATIVE (NEGATIVE); PROTEIN,URINE 100 mg/dL (NEGATIVE); URINE SPECIFIC GRAVITY 1.031; UROBILINOGEN,URINE NEGATIVE mg/dL (<2.0)
--- NOTE | 2019-06-25 13:35 | RADIOLOGY REPORT (SQ) ---
EXAM DESCRIPTION: L SPINE WHOLE IMAGES COMPLETED DATE/TIME: 06/25/2019 1:24 pm REASON FOR STUDY: low back pain COMPARISON: None. NUMBER OF VIEWS: Five views including obliques. TECHNIQUE: AP, lateral, oblique, and sacral radiographic images acquired of the lumbar spine. LIMITATIONS: None. FINDINGS: MINERALIZATION: Normal. SEGMENTATION: There are 5 lumbar-type vertebral bodies. There is no transitional anatomy at the lumb osacral junction. ALIGNMENT: No scoliotic curvature or spondylolisthesis. VERTEBRAE: The lumbar vertebral body heights are preserved. There is no fracture. DISCS: The intervertebral disc spaces are preserved. POSTERIOR ELEMENTS: Increased sclerosis of the L4-L5 and L5-S1 facet joints. There is no pars intera rticularis defect. HARDWARE: None in the spine. PARASPINAL SOFT TISSUES: No abnormality that is apparent on a radiograph. PELVIS: Intact. OTHER: No other finding. IMPRESSION: No acute fracture or malalignment of the lumbar spine. TECHNICAL DOCUMENTATION: JOB ID: [id number] [employer]- All Rights Reserved Reading location - IP/workstation name: [email or web address]
--- NOTE | 2019-06-25 15:13 | EKG REPORT ---
SEVERITY:- ABNORMAL ECG - SINUS TACHYCARDIA VENTRICULAR BIGEMINY BORDERLINE PROLONGED QT INTERVAL : Confirmed by: Chikis La MD 25-Jun-2019 15:12:11
[2019-06-25 15:20] LABS: URINE AMPHETAMINES SCREEN NEGATIVE; URINE BARBITURATES SCREEN NEGATIVE; URINE BENZODIAZEPINES SCREEN NEGATIVE; URINE COCAINE SCREEN NEGATIVE; URINE MARIJUANA (THC) SCREEN NEGATIVE; URINE METHADONE SCREEN NEGATIVE; URINE PHENCYCLIDINE SCREEN NEGATIVE
[2019-06-25] MEDS ORDERED: METOPROLOL SUCCINATE 25 MG TAB.SR.24H PO ONE (16:52)
[2019-06-25 17:19] VITALS: BP 159/112
== END 2019-06-25 17:19 | disposition home or self-care (01) ==
LOC: ER 11:44
DX: M54.41 Lumbago with sciatica, right side (principal); G89.29 Other chronic pain; R00.8 Other abnormalities of heart beat; I10 Essential (primary) hypertension; E11.9 Type 2 diabetes mellitus without complications; Z79.84 Long term (current) use of oral hypoglycemic drugs; Z79.899 Other long term (current) drug therapy
CPT/HCPCS: 36415; 72110; 80053; 80307; 81001; 84484; 85025; 93005; 93010; 99284